=== PATIENT | male | born 1960 | race Caucasian/White ===

== ENCOUNTER → 2017-01-01 | Outpatient (CLI) | payer BC ==
[2017-01-01 10:20] LABS: Non-African American GFR(MDRD) >60 (>60 ml/min/1.73 sqM)
--- NOTE | 2017-01-01 12:32 | MR ---
EXAMINATION TYPE: MR cervical spine wo/w con DATE OF EXAM: 01/01/2017 11:59 AM COMPARISON: 11/07/2013 HISTORY: Neck pain TECHNIQUE: Multiplanar, multisequence images of the cervical spine were acquired utilizing 20 mL intravenous Mul tiHance gadolinium contrast. Diffusion weighted imaging was performed. C2-C3: There is mild decreased signal noted compatible with degenerative disc disease. Posterior disc bulge with hypertrophic changes seen resulting in constriction of the thecal sac without overt steno sis. C3-C4: No evidence for degenerative disc disease. No disc bulge/herniation or protrusion. No Canal stenosis. Foramina are patent bilaterally. C4-C5: Postsurgical changes of cervical discectomy and fusion. Posterior pedicular screws are in plac e. Posterior hypertrophic change resulting in mild effacement of the ventral thecal sac although ther e is no evidence for central stenosis. Stenosis noted previously has improved significantly. No recur rent or residual disc herniation or stenosis noted. C5-C6: Postsurgical changes of cervical discectomy and fusion. Posterior pedicular screws are in plac e.Posterior hypertrophic change resulting in mild effacement of the ventral thecal sac although there is no evidence for central stenosis. Stenosis noted previously has improved significantly.No recurre nt or residual disc herniation or stenosis noted. C6-C7: Postsurgical changes of cervical discectomy and fusion. Posterior pedicular screws are in plac e. No evidence for disc herniation protrusion or central stenosis. C7-T1: No evidence for degenerative disc disease. No disc bulge/herniation or protrusion. No Canal stenosis. Foramina are patent bilaterally. Cervical segments are intact. There is normal alignment. Cervical spinal cord is of normal signal. Craniovertebral junction relationships are within normal limits. No pathologic enhancement. IMPRESSION: 1 interval changes of cervical discectomy with fusion and pedicular screw placement without evidence for residual or recurrent disease. 2. Mild disc bulging and hypertrophic change at C2-3 resulting in mild constriction of the thecal sac without overt stenosis.
== END | disposition home or self-care (01) ==
LOC: RADMRIMAIN 09:54
PROVIDERS: ATTEND Family Medicine
DX: M50.21 Other cervical disc displacement, high cervical region (principal); Z98.1 Arthrodesis status
CPT/HCPCS: 82565; 72156; 36415; A9577

== ENCOUNTER → 2019-01-10 | Outpatient (CLI) | payer BC ==
[2019-01-10 11:18] LABS: Basophils # (A) 0.1 k/uL (0-0.2); Basophils % (A) 1 %; Eosinophils # (A) 0.1 k/uL (0-0.7); Eosinophils % (A) 2 %; HCT 43.6 % (39.0-53.0); HGB 14.5 gm/dL (13.0-17.5); Lymphocytes % (A) 28 %; MCHC 33.3 g/dL (31.0-37.0); Mean Platelet Volume 6.7; Monocytes # (A) 0.5 k/uL (0-1.0); Monocytes % (A) 7 %; Neutrophils # (A) 4.2 k/uL (1.3-7.7); Neutrophils % (A) 60 %; Platelet Count 195 k/uL (150-450); RBC 4.41 m/uL (4.30-5.90); RDW 12.3 % (11.5-15.5); WBC 7.1 k/uL (3.8-10.6)
[2019-01-10 14:42] LABS: Erythrocyte Sedimentation Rate 5 mm/hr (0-15)
== END | disposition home or self-care (01) ==
LOC: LABWHC1 10:16
PROVIDERS: ATTEND Orthopaedic Surgery
DX: M25.552 Pain in left hip (principal)
CPT/HCPCS: 36415; 85025; 85652; 86140

== ENCOUNTER → 2019-01-14 | Outpatient (CLI) | payer BC ==
--- NOTE | 2019-01-14 13:33 | NM ---
EXAMINATION TYPE: NM bone 3 phase DATE OF EXAM: 01/14/2019 COMPARISON: X-ray 01/10/2019 HISTORY: Bilateral hip pain Triple phase bone scintigraphy was performed following the injection of 23.6 mCi Tc 99m MDP. Immedia te images and 5.25 hours post injection images acquired. FINDINGS: There is photopenic defect involving the left hip compatible with previous hip replacement surgery. There is symmetric flow bilaterally. Blood pool images demonstrate Faint soft tissue uptake is noted on the left. There is increased uptake along the greater trochanter of the left hip. Loosening or infection within the differential diagnosis. IMPRESSION: 1. Increased soft tissue and bony uptake within the greater trochanter of the left hip. Loosening or infection in the differential diagnosis correlate clinically.
== END | disposition home or self-care (01) ==
LOC: RADNMMAIN 07:20
PROVIDERS: ATTEND Orthopaedic Surgery
DX: R94.8 Abnormal results of function studies of other organs and systems (principal); Z96.642 Presence of left artificial hip joint
CPT/HCPCS: 78315; A9503

== ENCOUNTER → 2019-03-09 | Outpatient (CLI) | payer BC ==
--- NOTE | 2019-03-09 11:42 | US ---
EXAMINATION TYPE: US liver DATE OF EXAM: 03/09/2019 COMPARISON: CT CLINICAL HISTORY: I10 Hypertension,E66.9 Obesity. Diarrhea, ETOH abuse EXAM MEASUREMENTS: Liver Length: 17.7 cm Gallbladder Wall: 0.2 cm CBD: 0.4 cm Right Kidney: 12.0 x 5.7 x 4.9 cm Pancreas: Obscured by bowel gas Liver: Enlarged especially left lobe, heterogeneous, difficult to penetrate Gallbladder: ringdown artifact at fundus Evidence for sonographic Baker's sign: No CBD: wnl Right Kidney: Left kidney demonstrates a lobulated appearance. IMPRESSION: 1. Hepatomegaly with diffuse hepatocellular disease versus fatty liver.
== END | disposition home or self-care (01) ==
LOC: RADUSWWP 07:56
PROVIDERS: ATTEND Internal Medicine Gastroenterology
DX: R19.7 Diarrhea, unspecified (principal); F10.10 Alcohol abuse, uncomplicated; I10 Essential (primary) hypertension; E66.9 Obesity, unspecified; Z88.0 Allergy status to penicillin
CPT/HCPCS: 76705

== ENCOUNTER → 2019-03-09 | Outpatient (CLI) | payer BC ==
[~2019-03-09] MED LIST: REGADENOSON 0.4 MG/5 ML SYRINGE IV ONE
--- NOTE | 2019-03-09 11:09 | EST ---
EXERCISE STRESS AGE: 58 SEX: M HT: 6'0" WT: 240 PROTOCOL: Lexiscan Cardiolite Stress Test HEART RATE REST: 50 BLOOD PRESSURE REST: 128/67 MAXIMUM HEART RATE ACHIEVED: 69 MAXIMUM BLOOD PRESSURE: 132/58 INDICATIONS: Shortness of breath, palpitations CLINICAL INFORMATION: This is a Lexiscan Cardiolite stress test. Baseline heart rate 50 beats per minute. Baseline blood pressure 128/67 mmHg. Baseline 12-lead ECG showed normal sinus rhythm with a [address] elevation inferolaterally. The patient received Lexiscan infusion per protocol without a change in heart rate or blood pressure. He complained of shortness of breath. There were no new ECG changes. Nuclear portion will be reported separately. MMODL / IJN: [id number] /
--- NOTE | 2019-03-09 11:48 | NM ---
EXAMINATION TYPE: NM stress lexiscan cardiolite DATE OF EXAM: 03/09/2019 COMPARISON: NONE HISTORY: Precordial chest pain and abnormal EKG TECHNIQUE: After the intravenous administration of 9.94 mCi Tc 99m Sestamibi - Cardiolite resting SP ECT images acquired 45 minutes post injection. The patient received 0.4mg Lexiscan, 25.3 mCi Tc 99m Sestamibi - Stress images obtained [address] injection FINDINGS: Review of stress and rest SPECT images demonstrates decreased perfusion involving the cardiac apex on stress images. Stress-induced ischemia is not excluded. No fixed defects are identified at this time . Gated analysis shows normal wall motion with an estimated left ventricular ejection fraction of 68 %. IMPRESSION: Suspect stress-induced ischemia cardiac apex.
== END | disposition home or self-care (01) ==
LOC: RADNMMAIN 07:51
PROVIDERS: ATTEND Internal Medicine Cardiovascular Disease
DX: I25.10 Atherosclerotic heart disease of native coronary artery without angina pectoris (principal); I10 Essential (primary) hypertension; R06.02 Shortness of breath; R00.2 Palpitations
CPT/HCPCS: 93017; 78452; A9500; J2785

== ENCOUNTER → 2019-03-10 | Outpatient (CLI) | payer BC ==
[2019-03-10 11:10] LABS: HCT 42.7 % (39.0-53.0); HGB 14.4 gm/dL (13.0-17.5); MCH 33.5 pg (25.0-35.0); MCHC 33.9 g/dL (31.0-37.0); MCV 98.8 fL (80.0-100.0); Mean Platelet Volume 6.4; Platelet Count 177 k/uL (150-450); RBC 4.32 m/uL (4.30-5.90); RDW 12.7 % (11.5-15.5); WBC 7.1 k/uL (3.8-10.6)
[2019-03-10 11:44] LABS: Prothrombin Time 10.4 sec (9.0-12.0)
[2019-03-10 16:34] LABS: Albumin 4.6 g/dL (3.80-4.90); Albumin/Globulin Ratio 2.3 (1.60-3.17); Bilirubin, Conjugated 0.3 mg/dL (0.20-0.40); Bilirubin,Unconjugated 0.8 mg/dL; Total Bilirubin 1.1 mg/dL (0.3-1.2); Total Protein 6.6 g/dL (6.2-8.2)
== END ==
LOC: LABWHC1 10:06
PROVIDERS: ATTEND Internal Medicine Gastroenterology
DX: F10.10 Alcohol abuse, uncomplicated (principal); I10 Essential (primary) hypertension; E66.9 Obesity, unspecified; R19.7 Diarrhea, unspecified
CPT/HCPCS: 36415; 80076; 82105; 82565; 84520; 85027; 85610

== ENCOUNTER → 2020-08-16 | Outpatient (CLI) | payer BC ==
--- NOTE | 2020-08-16 15:32 | EST ---
EXERCISE STRESS AGE: 59 SEX: M HT: 6 ft. WT: 235 lbs. PROTOCOL: Hector STAGE: III DURATION OF EXERCISE: 9:00 HEART RATE REST: 58 BLOOD PRESSURE REST: 151/87 MAXIMUM HEART RATE ACHIEVED: 145 MAXIMUM BLOOD PRESSURE: 201/103 85% MPHR: 137 100% MPHR: 161 METS: 10.5 INDICATIONS: Chest pain. CLINICAL INFORMATION: STRESS DATA: Heart rate 58, pressure is 151/87 mmHg. Baseline EKG showed sinus mechanism. The patient exercised on the treadmill according to Hector protocol for a total of 9 minutes and achieved 10.5 METS. Max heart rate was 145, which is about 90% of maximum predicted heart rate and maximum blood pressure was 204/103 mmHg. Clinically the patient did not have any symptoms of chest pain or chest discomfort and the EKG did not show any significant ST or T-wave abnormalities concerning for ischemia. CONCLUSION: 1. Excellent exercise tolerance. 2. Normal EKG in response to exercise. MMODL / IJN: [id number] /
== END | disposition home or self-care (01) ==
LOC: RADNMMAIN 08:19
PROVIDERS: ATTEND Internal Medicine Cardiovascular Disease
DX: I25.10 Atherosclerotic heart disease of native coronary artery without angina pectoris (principal)
CPT/HCPCS: 93017

== ENCOUNTER → 2023-02-20 | Outpatient (CLI) | payer MEDICARE ==
[2023-02-20 19:57] LABS: INR 0.94 (0.90-1.11); Prothrombin Time 10.7 sec (9.9-11.9)
[2023-02-20 20:42] LABS: HCT 39.8 % (39.6-50.0); MCH 34.8 pg (27.0-32.0); MCHC 35.2 g/dL (32.0-37.0); Mean Platelet Volume 9.8 fL (9.5-12.2); NRBC Per 100 WBC 0 /100 WBCS (0.0-0.0); Platelet Count 187 X 10*3/uL (140-440); RBC 4.02 X 10*6/uL (4.40-5.60); RDW 12.4 % (11.5-14.5); WBC 7.73 X 10*3/uL (4.50-10.00)
[2023-02-20 21:18] LABS: African American GFR (CKD) 89.8 (60.0-200.0); Albumin 4.4 g/dL (3.8-4.9); Albumin/Globulin Ratio 1.73 (1.60-3.17); Bilirubin, Conjugated 0.22 mg/dL (0.20-0.40); Bilirubin,Unconjugated 0.56 mg/dL (0.20-1.00); Blood Urea Nitrogen 13.4 mg/dL (9.0-27.0); Globulin 2.5 g/dL (1.6-3.3); Non-African American GFR(CKD) 77.5 (60.0-200.0); Phosphorus 2.3 mg/dL (2.4-5.1); Total Bilirubin 0.8 mg/dL (0.30-1.20); Total Protein 6.9 g/dL (6.2-8.2)
== END | disposition home or self-care (01) ==
LOC: LABWHC1 13:50
PROVIDERS: ATTEND Internal Medicine Gastroenterology
DX: K21.9 Gastro-esophageal reflux disease without esophagitis (principal); R10.9 Unspecified abdominal pain; F10.10 Alcohol abuse, uncomplicated; I10 Essential (primary) hypertension; E66.9 Obesity, unspecified
CPT/HCPCS: 36415; 80076; 82248; 82565; 84100; 84520; 85027; 85610

== ENCOUNTER → 2023-10-07 | Outpatient (CLI) | payer MEDICARE ==
--- NOTE | 2023-10-07 17:29 | CA ---
Transthoracic Echo Report Name: David Baker Age: 62 Gender: M : 1960 Exam Date: 10/07/2023 15:34 Exam Location: [facility] Ht (in): 72 Wt (lb): 225 Ordering Physician: Alfredo Coleman DO Attending/Referring Phys: Alfredo Coleman DO Voucher Clerk Noy Encinas [facility] Procedure CPT: Indications: R06.02 SHORTNESS OF BREATH,R60.1 EDEMA Cardiac Hx: Technical Quality: Fair Contrast 1: Total Dose (mL): Contrast 2: Total Dose (mL): MEASUREMENTS (Male / Female) Normal Values 2D ECHO LV Diastolic Diameter PLAX 5.0 cm 4.2 - 5.9 / 3.9 - 5.3 cm LV Systolic Diameter PLAX 3.1 cm IVS Diastolic Thickness 0.9 cm 0.6 - 1.0 / 0.6 - 0.9 cm LVPW Diastolic Thickness 0.9 cm 0.6 - 1.0 / 0.6 - 0.9 cm LV Relative Wall Thickness 0.4 LVOT Diameter 2.0 cm Ascending Aorta Diameter 3.5 cm M-MODE Aortic Root Diameter MM 2.3 cm LA Systolic Diameter MM 4.3 cm LA Ao Ratio MM 1.8 AV Cusp Separation MM 0.8 cm DOPPLER AV Peak Velocity 227.4 cm/s AV Peak Gradient 20.7 mmHg AV Mean Velocity 149.8 cm/s AV Mean Gradient 10.3 mmHg AV Velocity Time Integral 52.5 cm LVOT Peak Velocity 161.5 cm/s LVOT Peak Gradient 10.4 mmHg LVOT Velocity Time Integral 37.5 cm LVOT Stroke Volume 122.1 cm??? LVOT Stroke Volume Index 54.5 ml/m??? LVOT Cardiac Index 2811.6 cm???/min???m??? AV Area Cont Eq vti 2.3 cm??? AV Area Cont Eq pk 2.3 cm??? Mitral E Point Velocity 101.1 cm/s Mitral A Point Velocity 95.6 cm/s Mitral E to A Ratio 1.1 MV Deceleration Time 194.8 ms LV E' Lateral Velocity 11.4 cm/s Mitral E to LV E' Lateral Ratio 8.9 LV E' Septal Velocity 8.4 cm/s Mitral E to LV E' Septal Ratio 12.0 TR Peak Velocity 210.6 cm/s TR Peak Gradient 17.7 mmHg Right Atrial Pressure 3.0 mmHg Pulmonary Artery Systolic Pressu 20.7 mmHg Right Ventricular Systolic Press 20.7 mmHg FINDINGS Left Ventricle Left ventricular wall thickness normal. Left ventricular cavity size normal. Normal left ventricular systolic function with no obvious regional wall motion abnormalities. Left ventricular ejection fraction is estimated at 60-65%. Right Ventricle Normal right ventricular size. Right Atrium Normal right atrial size. Left Atrium Moderate left atrial dilatation. Mitral Valve Structurally normal mitral valve. Trace mitral regurgitation. Aortic Valve Trileaflet aortic valve. Diffuse thickening of the aortic valve cusps with reduced excursion. No aortic regurgitation. Aortic valve sclerosis. Tricuspid Valve Structurally normal tricuspid valve. Trace tricuspid regurgitation. Pulmonic Valve Pulmonic valve not well visualized. Pericardium No pericardial effusion. Aorta Normal size aortic root and proximal ascending aorta. CONCLUSIONS Normal LV function Aortic sclerosis without significant stenosis Consider transesophageal echo if clinically indicated for further evaluation of the aortic valve Previewed by: Dr. Obdulio Hart MD (Electronically Signed) Final Date: 07 October 2023 17:28
== END | disposition home or self-care (01) ==
LOC: RADECHMAIN 15:12
PROVIDERS: ATTEND Family Medicine
DX: I35.8 Other nonrheumatic aortic valve disorders (principal); R06.02 Shortness of breath; R60.1 Generalized edema
CPT/HCPCS: 93306

== ENCOUNTER 2024-02-28 10:54 | Emergency (ER) | payer MEDICARE ==
[2024-02-28 11:01] VITALS: BP 147/79; PULSE 63; RESP 20; TEMP 98.1
--- NOTE | 2024-02-28 11:29 | ED ---
Wound/Laceration HPI - General Chief Complaint: Wound/Laceration Stated Complaint: Urogenital Time Seen by Provider: 02/28/24 11:00 Source: patient, RN notes reviewed Mode of arrival: ambulatory Limitations: no limitations - History of Present Illness Initial Comments: 63-year-old male with no significant past medical history presenting with laceration 1 hour prior to arrival. States he was using the bathroom on the way down, although he is unsure what he hit it on. Denies hitting head, loss of consciousness, syncope. Denies other injuries. Denies active bleeding. Denies blood thinners. Unsure when last tetanus was given - Related Data Home Medications Medication Instructions Recorded Confirmed Labetalol [Trandate] 200 mg PO BID 07/18/14 12/08/22 Lisinopril-Hctz 20-25 mg 1 each PO DAILY 07/18/14 12/08/22 [Zestoretic 20-25] DULoxetine HCL [Cymbalta] 60 mg PO DAILY 12/08/22 12/08/22 Ibuprofen [Motrin] 800 mg PO Q8H PRN 12/08/22 12/08/22 Omeprazole Magnesium [PriLOSEC OTC] 40 mg PO DAILY 12/08/22 12/08/22 Tamsulosin [Flomax] 0.4 mg PO DAILY 12/08/22 12/08/22 Testosterone [Testosterone 1.62% 1.25 gm TRANSDERM DAILY 12/08/22 12/08/22 (1250 mg)] allopurinoL [Zyloprim] 100 mg PO DAILY 12/08/22 12/08/22 amLODIPine [Norvasc] 5 mg PO DAILY 12/08/22 12/08/22 Previous Rx's Medication Instructions Recorded HYDROcodone/APAP 5-325MG [[place] 1 tab PO Q6HR PRN 3 Days #24 tab 12/10/22 5-325] Allergies Allergy/AdvReac Type Severity Reaction Status Date / Time Penicillins Allergy Unknown Verified 02/28/24 10:58 Childhood Review of Systems ROS Statement: Those systems with pertinent positive or pertinent negative responses have been documented in the HPI. ROS Other: All systems not noted in ROS Statement are negative. Past Medical History Past Medical History: GERD/Reflux, Hypertension, Osteoarthritis (OA), Sleep Apnea/CPAP/BIPAP History of Any Multi-Drug Resistant Organisms: None Reported Past Surgical History: Hernia Repair, Joint Replacement, Orthopedic Surgery Additional Past Surgical History / Comment(s): cervical fusion April 2014, TOTAL LEFT HIP Past Anesthesia/Blood Transfusion Reactions: No Reported Reaction Past Psychological History: Anxiety, Depression Smoking Status: Current every day smoker Past Alcohol Use History: Daily Past Drug Use History: None Reported - Past Family History Mother Family Medical History: No Reported History Father Family Medical History: Cancer General Exam Limitations: no limitations General appearance: alert, in no apparent distress Head exam: Present: atraumatic, normocephalic, normal inspection Respiratory exam: Present: normal lung sounds bilaterally. Absent: respiratory distress, wheezes, rales, rhonchi, stridor Cardiovascular Exam: Present: regular rate, normal rhythm, normal heart sounds. Absent: systolic murmur, diastolic murmur, rubs, gallop, clicks GI/Abdominal exam: Present: soft, normal bowel sounds. Absent: distended, tenderness, guarding, rebound, rigid Skin exam: Present: abrasion (2 cm x 2 cm superficial abrasion present on dorsal aspect of distal penis. No active bleeding. No surrounding erythema or drainage) Course Vital Signs 02/28/24 10:55 Temperature 98.1 F Pulse Rate 63 Respiratory 20 Rate Blood Pressure 147/79 O2 Sat by Pulse 99 Oximetry Procedures - Laceration Laceration #1 Consent Obtained: verbal consent Indication: other (Abrasion) Site: penis Size (cm): 2 Description: flap Pre-repair: irrigated extensively, deep structures intact Patient Tolerated Procedure: well Additional Comments: Wound cleaned and dressed. Neurovascularly intact Medical Decision Making - Medical Decision Making Was pt. sent in by a medical professional or institution (, PA, INSPECTOR AND CLERK, urgent care, hospital, or fpc...) When possible be specific @ -No Did you speak to anyone other than the patient for history (EMS, parent, family, police, friend...)? What history was obtained from this source @ -No Did you review nursing and triage notes (agree or disagree)? Why? @ -I reviewed and agree with nursing and triage notes Were old charts reviewed (outside hosp., previous admission, EMS record, old EKG, old radiological studies, urgent care reports/EKG's, fpc records)? Report findings @ -No old charts were reviewed Differential Diagnosis (chest pain, altered mental status, abdominal pain women, abdominal pain men, vaginal bleeding, weakness, fever, dyspnea, syncope, headache, dizziness, GI bleed, back pain, seizure, CVA, palpatations, mental health, musculoskeletal)? @ -Laceration, avulsion, abrasion EKG interpreted by me (3pts min.). @ -None X-rays interpreted by me (1pt min.). @ -None done CT interpreted by me (1pt min.). @ -None done U/S interpreted by me (1pt. min.). @ -None done What testing was considered but not performed or refused? (CT, X-rays, U/S, labs)? Why? @ -None What meds were considered but not given or refused? Why? @ -None Did you discuss the management of the patient with other professionals (professionals i.e. , PA, INSPECTOR AND CLERK, lab, RT, psych nurse, social media assistant, road design draftsperson, teacher, police officer, case assistant)? Give summary @ -No Was smoking cessation discussed for >3mins.? @ -No Was critical care preformed (if so, how long)? @ -No Were there social determinants of health that impacted care today? How? (Homelessness, low income, unemployed, alcoholism, drug addiction, transportation, low edu. Level, literacy, decrease access to med. care, longterm, rehab)? @ -No Was there de-escalation of care discussed even if they declined (Discuss DNR or withdrawal of care, Hospice)? DNR status @ -No What co-morbidities impacted this encounter? (DM, HTN, Smoking, COPD, CAD, Cancer, CVA, ARF, Chemo, Hep., AIDS, mental health diagnosis, sleep apnea, morbid obesity)? @ -None Was patient admitted / discharged? Hospital course, mention meds given and route, prescriptions, significant lab abnormalities, going to OR and other pertinent info. @ -Patient was discharged. Patient was seen and evaluated for abrasion of penis. Abrasion was cleaned and dressed. Tetanus was updated. There are no red flag symptoms present. Strict alarm symptoms discussed with patient. Follow-up with PCP with further concerns. Patient discharged in stable condition. Case discussed with Dr. Black Undiagnosed new problem with uncertain prognosis? @ -No Drug Therapy requiring intensive monitoring for toxicity (Heparin, Nitro, Insulin, Cardizem)? @ -No Were any procedures done? @ -Abrasion was cleaned and dressed Diagnosis/symptom? @ -Abrasion to penis Acute, or Chronic, or Acute on Chronic? @ -Acute Uncomplicated (without systemic symptoms) or Complicated (systemic symptoms)? @ -Uncomplicated Side effects of treatment? @ -No Exacerbation, Progression, or Severe Exacerbation? @ -No Poses a threat to life or bodily function? How? (Chest pain, [place], [place], pneumonia, PE, COPD, DKA, ARF, appy, cholecystitis, CVA, Diverticulitis, Homicidal, Suicidal, threat to staff... and all critical care pts) @ -No Disposition Clinical Impression: Abrasion of penis Disposition: HOME SELF-CARE Condition: Stable Instructions (If sedation given, give patient instructions): Abrasion (ED) Additional Instructions: Please return to the Emergency Department if symptoms worsen or any other concerns. Is patient prescribed a controlled substance at d/c from ED?: No Referrals: Alfredo Coleman DO [Primary Care Provider] - 1-2 days Time of Disposition: 11:29
[2024-02-28] MEDS: DIPH,PERTUS(ACELL)TETVAC-LF 0.5 ML VIAL IM ONE (11:34)
== END 2024-02-28 11:37 | disposition home or self-care (01) ==
LOC: EC 10:54
DX: S30.812A Abrasion of penis, initial encounter (principal); F17.200 Nicotine dependence, unspecified, uncomplicated; Z88.0 Allergy status to penicillin; Z23 Encounter for immunization; W22.8XXA Striking against or struck by other objects, initial encounter; Y92.002 Bathroom of unspecified non-institutional (private) residence as the place of occurrence of the external cause
CPT/HCPCS: 12001; 90471; 90715; 99282